=== PATIENT | male | born 2000 | race Two or more races ===

== ENCOUNTER 2023-10-12 15:14 | Emergency (ER) | payer OTHER ==
[~2023-10-12] VITALS: Ht 165.1 cm; Wt 70.0 kg
[2023-10-12 16:23] VITALS: BP 155/93; PULSE 74; RESP 16; O2SAT 97
== END 2023-10-12 20:11 | disposition left against medical advice (07) ==
LOC: ER 15:14
DX: M25.562 Pain in left knee (principal); Z53.21 Procedure and treatment not carried out due to patient leaving prior to being seen by health care provider; V49.9XXA Car occupant (driver) (passenger) injured in unspecified traffic accident, initial encounter; Y93.89 Activity, other specified; Y92.89 Other specified places as the place of occurrence of the external cause; Y99.8 Other external cause status